=== PATIENT | male | born 1940 | race Caucasian/White ===

== ENCOUNTER 2017-03-04 16:22 | Inpatient (IN) | payer MEDICARE, BC ==
[~2017-03-04] VITALS: Ht 175.3 cm; Wt 88.0 kg
--- NOTE | 2017-03-04 16:30 | NUR ---
PATIENT BIB RA D/T MULTIPLE ABRASIONS AND LACERATION FROM ETOH ABUSE. PATIENT IS A/OX 3. BREATHING EVEN AND UNLABORED ON ROOM AIR. NO SOB. VITALS STABLE. SAFETY AND COMFORT MEASURES IN PLACE. AWAITING MD ORDERS.
[2017-03-04] MEDS ORDERED: ATEN25TA PO (16:43)
[2017-03-04] MEDS ORDERED: HYDR12.5 PO (16:43)
[2017-03-04] MEDS ORDERED: IV NS 0.9% 1,000 ML BAG IV ONE (17:00)
[2017-03-04 17:08] LABS: BASOPHILS # (AUTO) 0.1 /CMM (0.0-0.2); BASOPHILS % (AUTO) 1.5 % (0.0-2.0); EOSINOPHILS # (AUTO) 0.1 /CMM (0.0-0.7); EOSINOPHILS % (AUTO) 1.2 % (0.0-6.0); HEMATOCRIT 42 % (39-51); HEMOGLOBIN 14.6 g/dL (13.5-17.5); LYMPHOCYTES # (AUTO) 0.8 /CMM (0.8-4.8); LYMPHOCYTES % (AUTO) 9.4 % (20.0-44.0); MEAN CORPUSCULAR HEMOGLOBIN 36 PG (26.0-33.0); MEAN CORPUSCULAR HGB CONC 35 g/dl (31.0-36.0); MEAN CORPUSCULAR VOLUME 102 fL (80-96); MONOCYTES # (AUTO) 0.6 /CMM (0.1-1.30); MONOCYTES % (AUTO) 6.8 % (2.0-12.0); NEUTROPHILS # (AUTO) 6.9 /CMM (1.8-8.9); NEUTROPHILS % (AUTO) 81.1 % (43.0-81.0); PLATELET COUNT (AUTO) 192 /CMM (150-450); RDW COEFFICIENT OF VARIATION 12.6 (11.5-15.0); RED BLOOD CELL COUNT(AUTO) 4.08 MIL/uL (4.5-6.0); WHITE BLOOD COUNT (AUTO) 8.6 K/uL (4.3-11.0)
--- NOTE | 2017-03-04 17:08 | NUR ---
PATIENT TAKEN TO CT VIA STRETCHER.
--- NOTE | 2017-03-04 17:20 | NUR ---
PATIENT RETURNED FROM CT.
[2017-03-04 17:28] LABS: ALANINE AMINOTRANSFERASE 57 U/L (12-78); ALBUMIN 2.9 g/dL (3.4-5.0); ALCOHOL, BLOOD 119 mg/dL (0-0); ALKALINE PHOSPHATASE 74 U/L (46-116); ASPARTATE AMINOTRANSFERASE 68 U/L (15-37); BILIRUBIN,DIRECT 0.6 mg/dL (0.0-0.2); BILIRUBIN,TOTAL 1.2 mg/dL (0.2-1.0); CALCIUM, SERUM 8.4 mg/dL (8.5-10.1); CARBON DIOXIDE 33 mmol/L (21-32); CHLORIDE 85 mmol/L (98-107); CREATININE 0.9 mg/dL (0.6-1.3); GLUCOSE 105 mg/dL (74-106); SODIUM SERUM 126 mmol/L (136-145); TOTAL PROTEIN, SERUM 6.2 g/dL (6.4-8.2); UREA NITROGEN, BLOOD 6 mg/dL (7-18)
[2017-03-04 17:29] LABS: ACETAMINOPHEN 0 ug/ml (10-30)
[2017-03-04 17:30] LABS: POTASSIUM 2.2 mmol/L (3.5-5.1)
[2017-03-04] MEDS ORDERED: TAMS0.4C34 PO (17:31)
[2017-03-04] MEDS ORDERED: POTASSIUM CHLORIDE 20 MEQ TAB.PRT.SR PO ONE ×2 (17:53→18:00)
[2017-03-04] MEDS ORDERED: Magnesium 1GM/D5W 100ML PREMIX 100 ML IV ONE ×2 (17:53→19:22)
[2017-03-04] MEDS ORDERED: POTASSIUM CL. PREMIX PERIPHER. 50 ML ONE ×3 (18:07→20:19)
[2017-03-04] MEDS: Magnesium 1GM/D5W 100ML PREMIX 100 ML IV SCH ×2 (18:10→19:20)
[2017-03-04] MEDS: POTASSIUM CL. PREMIX PERIPHER. 50 ML IV SCH ×4 (18:11→22:48)
--- NOTE | 2017-03-04 18:29 | NUR ---
PAGED HOME COMFORT ADVISOR PANEL
[2017-03-04] MEDS ORDERED: IV NS 0.9% 1,000 ML IV ONE (19:00)
[2017-03-04] MEDS ORDERED: ACETAMINOPHEN 325 MG TABLET PO PRN (19:30)
[2017-03-04] MEDS ORDERED: MAGNESIUM HYDROXIDE 30 ML UDC PO PRN (19:30)
[2017-03-04] MEDS ORDERED: Z GUARD REMEDY 2 OZ OINT TP PRN (19:30)
[2017-03-04] MEDS ORDERED: MAG HYDROX/AL HYDROX/SIMETH 30 ML UDC PO PRN (19:30)
[2017-03-04] MEDS ORDERED: ONDANSETRON HCL/PF 4 MG/2 ML VIAL IVP PRN (19:30)
[2017-03-04] MEDS ORDERED: ZOLPIDEM TARTRATE 5 MG TABLET PO PRN (19:30)
--- NOTE | 2017-03-04 19:42 | NUR ---
URINE OBTAINED AND SENT TO LAB.
--- NOTE | 2017-03-04 19:47 | NUR ---
US TECH AT BEDSIDE.
--- NOTE | 2017-03-04 20:00 | NUR ---
PT REFUSING CAROTID DUPLEX. DR KLEIN NOTIFIED.
[2017-03-04] MEDS ORDERED: TDAP [DIPH/PERTUSSIS/TET] 0.5 ML VIAL IM ONE ×2 (20:29→20:30)
--- NOTE | 2017-03-04 20:44 | NUR ---
REPORT GIVEN TO [facility] FOR ADMISSION.
[2017-03-04 20:53] LABS: APPEARANCE,URINE Clear (CLEAR); BILIRUBIN,URINE Negative (NEGATIVE); BLOOD, URINE Moderate Ery/uL (NEGATIVE); COLOR,URINE Yellow (YELLOW); KETONES,URINE Negative (NEGATIVE); LEUKOCYTE ESTERASE ,URINE Negative (NEGATIVE); NITRITE, URINE Negative (NEGATIVE); PH,URINE 6.5 (5.0-8.0); PROTEIN,URINE Negative (NEGATIVE); UGLUCOSE Negative (NEGATIVE)
[2017-03-04 21:00] VITALS: BP 163/56
--- NOTE | 2017-03-04 21:00 | NUR ---
RN NOTES ADMITTED PATIENT FROM ER VIA STRETCHER WITH NO RESPIRATORY DISTRESS OR SHORTNESS OF BREATH. BREATHING EVEN AND UNLABORED. ALERT AND ORIENTED X 4. VERBALLY ABLE TO COMMUNICATE NEEDS. CONTINENT OF BOWEL AND BLADDER FUNCTION. ABDOMEN SOFT AND NON TENDER. LEFT WRIST IV LINE INTACT. ON IV HYDRATION @75ML TOLERATING WELL. VITAL SIGNS WNL. WILL CONTINUE TO MONITOR.
--- NOTE | 2017-03-04 21:05 | NUR ---
PATIENT TRANSPORTED TO [facility] FOR ADMISSION VIA ACLS PROTOCOL
[2017-03-04 21:10] LABS: BACTERIA,URINE None seen /HPF (None Seen); SQUAMOUS EPITHELIAL CELL,UR Few /HPF (None Seen); WBC,URINE 0-2 /HPF (0-3)
[2017-03-04] MEDS: IV NS 0.9% 1,000 ML IV PRN (23:24)
[2017-03-05] VITALS: BP 170/72
[2017-03-05 04:00] VITALS: BP 167/71
[2017-03-05] MEDS ORDERED: CLONIDINE HCL 0.1 MG TABLET PO PRN (04:30)
--- NOTE | 2017-03-05 07:15 | NUR ---
RN INITIAL NOTES PT IS IN BED A/O x4, NO COMPLAINTS OF PAIN, ROOM AIR SATURATING WELL. SINUS ON TELE. PT IS CONTINENT CONTACT ASSIST WITH 1 PERSON TO AMBULATE. ON REGULAR DIET - ASPIRATION PRECAUTION. PT HAS MULTIPLE BRUISES, AWAITING WOUND CONSULT. LEFT WRIST #20 GAUGE ON 75ML/HR. ENCOURAGED PT OF SELF CARE. ASSISTED WITH ADL'S. SIDE RAILS UP, BED LOCKED AND IN LOWEST POSITION, CALL LIGHTS WITHIN REACH.
--- NOTE | 2017-03-05 07:25 | NUR ---
RN CLOSING NOTES RESTING COMFORTABLY IN BED. IN NO DISTRESS, BREATHING EVEN AND UNLABORED. NO COMPLAINT OF PAIN OR DISCOMFORT. NO SIGNIFICANT CHANGE OF CONDITION. WILL ENDORSE TO AM SHIFT FOR CONTINUITY OF CARE
[2017-03-05 08:00] VITALS: BP_SYST 154; BP_DIAS 73; BP_DIAS 82
[2017-03-05 08:07] LABS: BASOPHILS # (AUTO) 0.1 /CMM (0.0-0.2); BASOPHILS % (AUTO) 0.8 % (0.0-2.0); EOSINOPHILS % (AUTO) 0.1 % (0.0-6.0); HEMATOCRIT 37 % (39-51); HEMOGLOBIN 13.3 g/dL (13.5-17.5); LYMPHOCYTES # (AUTO) 0.7 /CMM (0.8-4.8); LYMPHOCYTES % (AUTO) 8.7 % (20.0-44.0); MEAN CORPUSCULAR HEMOGLOBIN 36 PG (26.0-33.0); MEAN CORPUSCULAR HGB CONC 36 g/dl (31.0-36.0); MEAN CORPUSCULAR VOLUME 102 fL (80-96); MONOCYTES # (AUTO) 0.5 /CMM (0.1-1.30); MONOCYTES % (AUTO) 6.1 % (2.0-12.0); NEUTROPHILS # (AUTO) 6.7 /CMM (1.8-8.9); NEUTROPHILS % (AUTO) 84.3 % (43.0-81.0); PLATELET COUNT (AUTO) 164 /CMM (150-450); RDW COEFFICIENT OF VARIATION 12.5 (11.5-15.0); RED BLOOD CELL COUNT(AUTO) 3.64 MIL/uL (4.5-6.0); WHITE BLOOD COUNT (AUTO) 7.9 K/uL (4.3-11.0)
[2017-03-05] MEDS: PANTOPRAZOLE 40 MG TABLET.DR PO SCH (08:12)
[2017-03-05] MEDS: MULTIVITAMINS,THERAGRAN 1 UDTAB TABLET PO SCH (08:12)
[2017-03-05] MEDS: TAMSULOSIN 0.4 MG CAP.SR.24H PO SCH (08:13)
[2017-03-05] MEDS: FOLIC ACID 1 MG TABLET PO SCH (08:13)
[2017-03-05] MEDS: ATENOLOL 25 MG TABLET PO SCH (08:13)
[2017-03-05] MEDS: THIAMINE HCL 100 MG TABLET PO SCH (08:13)
[2017-03-05 08:43] LABS: CHOLESTEROL 96 mg/dL (<200); HDL CHOLESTEROL 42 mg/dL (40-60); LDL 54 mg/dL (0-99); TRIGLYCERIDES 38 mg/dL (30-150)
[2017-03-05 08:47] LABS: CALCIUM, SERUM 7.6 mg/dL (8.5-10.1); CARBON DIOXIDE 30 mmol/L (21-32); CHLORIDE 90 mmol/L (98-107); CREATININE 0.7 mg/dL (0.6-1.3); GLUCOSE 125 mg/dL (74-106); MAGNESIUM 1.7 mg/dL (1.8-2.4); PHOSPHORUS 2.1 mg/dL (2.5-4.9); SODIUM SERUM 127 mmol/L (136-145); UREA NITROGEN, BLOOD 5 mg/dL (7-18)
[2017-03-05] MEDS ORDERED: HYDROCHLOROTHIAZIDE 25 MG TABLET PO SCH (09:00)
[2017-03-05 09:40] LABS: POTASSIUM 2.8 mmol/L (3.5-5.1)
--- NOTE | 2017-03-05 11:15 | NUR ---
WOUND CARE CONSULT: PT PRESENTS WITH MULTIPLE WOUNDS, PRESENT ON ADMISSION INCLUDING SKIN TEARS TO ARMS AND ABRASIONS TO BILATERAL KNEES. RECOMMEND SURGICAL CONSULT. PLASTICS TEAM TO SEE PT PER DR FAUSTIN. PT ON JASBIR ISOFLEX LOW AIRLOSS BED. ALL SKIN PROTECTION MEASURES IN PLACE AND DISCUSSED WITH NURSING STAFF. WILL SEE PRN. DICKEY IN AGREEMENT WITH PLAN OF CARE. Addendum: 03/05/17 at 1117 by COLLETTE POWERS WNDNU Amended: Links added.
[2017-03-05] MEDS: POTASSIUM CHLORIDE 20 MEQ TAB.PRT.SR PO SCH ×3 (11:26→13:01)
[2017-03-05 12:00] VITALS: BP 112/70
[2017-03-05] MEDS ORDERED: Magnesium 1GM/D5W 100ML PREMIX PIGGYBACK IV ONE (12:00)
[2017-03-05] MEDS: Magnesium 1GM/D5W 100ML PREMIX 100 ML IV SCH ×2 (12:15→13:01)
[2017-03-05] MEDS ORDERED: K PHOS NEUTRAL 250 MG TABLET PO ONE (13:00)
[2017-03-05] MEDS: IV NS 0.9% 1,000 ML IV PRN (13:08)
[2017-03-05 16:00] VITALS: BP 124/54
[2017-03-05 17:03] LABS: URINE SODIUM, RANDOM 91 mmol/l (40-220)
[2017-03-05 17:21] LABS: OSMOLALITY,URINE 268 mOS/kg (340-1090)
[2017-03-05] MEDS: NEOMY SULF/BACITRAC ZN/POLY 15 GM TUBE TP SCH (17:25)
--- NOTE | 2017-03-05 18:56 | NUR ---
RN CLOSING NOTES NO SIGNIFICANT CHANGES DURING AM SHIFT. NO RESPIRATORY DISTRESS NOTED, ADLIB WITH BRP, STAND BY ASSIST. ENCOURAGE PT WITH SELF CARE, ASSISTED WITH ADL'S 1 PERSON ASSIST. WOUND TREATMENT DONE, URINE COLLECTED TO LAB FOR UA. ALL SAFETY MEASURES MAINTAINED, SIDE RAILS UP, BED LOCKED AND IN LOWEST POSITION. ALL MEDS GIVEN ORDERED. CALL LIGHTS WITHIN REACH, WILL ENDORSED TO PM NURSE FOR CONTINUATION OF CARE.
--- NOTE | 2017-03-05 19:15 | NUR ---
RN INITIAL NOTES RECEIVED PATIENT IN BED, AWAKE AND ALERT X2-3. PATIENT OBSERVED TO BE RESTLESS IN BED, CONSTANTLY TRYING TO GET UP AND SIT AT EDGE OF BED AND RETURNING TO BED. PATIENT'S NEEDS ANTICIPATED AND MET. CONSTANT REORIENTATION AND REDIRECTION PROVIDED. FALL AND SAFETY PRECAUTION STRICTLY OBSERVED. BED ALARM TURNED ON. B ARM DRESSINGS REMAINS INTACT, NO BLEEDING NOTED. IVF ORDERED ON PATIENT'S L WRIST G20, FLUSHED AND PATENT, NO SIGNS OF INFILTRATION. PATIENT'S NEEDS ANTICIPATED AND MET. SAFETY AND COMFORT ENSURED. BED IN LOW AND LOCKED POSITION. ON CLOSE MONITORING FOR FALL AND SAFETY AND PRECAUTION.
[2017-03-05 20:00] VITALS: BP 160/77
--- NOTE | 2017-03-05 22:00 | NUR ---
RN NOTES PATIENT IS ALERT, PERIODS OF CONFUSION NOTED. PATIENT REQUIRING CONSTANT REORIENTATION AND REDIRECTION. FALL AND SAFETY PRECAUTION OBSERVED AT ALL TIMES. PROVIDED WITH REASSURANCE NEEDED. PATIENT OBSERVED TO BE RESTLESS, IN AND OUT OF BED - SITTING AT EDGE OF BED. PATIENT ASSISTED WITH ADLs/VOIDING, MINIMAL TO STAND-BY ASSIST WITH USE OF FWW, UNSTEADY GAIT. FALL PRECAUTION OBSERVED AT ALL TIMES. STAFF AT BEDSIDE FOR CLOSE MONITORING.
[2017-03-05] MEDS: TEMAZEPAM 15 MG CAPSULE PO PRN (23:38)
[2017-03-06] VITALS: BP 127/85
--- NOTE | 2017-03-06 00:30 | NUR ---
RN NOTES PATIENT IN BED, STILL AWAKE AT THIS TIME, MORE CALM AT THIS TIME, NO EPISODE OF GETTING OOB. ON CLOSE MONITORING.
[2017-03-06] MEDS: HYDROCODONE/APAP 5/325MG 1 EACH TABLET PO PRN (01:47)
--- NOTE | 2017-03-06 01:50 | NUR ---
RN NOTES BED ALARM GOING OFF, ATTENDED TO PATIENT IMMEDIATELY, PATIENT NOTED TO BE ATTEMPTING TO GET OUT OF BED AND SITTING AT EDGE OF BED, RESTLESS AND AGITATED. PATIENT INSISTING ON WALKING TO THE BATHROOM; REORIENTED PATIENT TO SAFETY AND FALL RISK, PATIENT WITH UNSTEADY GAIT AND WAS MEDICATED WITH RESTORIL AT 2330. PATIENT UNABLE TO BE REDIRECTED. 2-3 NURSES ATTENDED TO PATIENT TO REORIENT AND REPOSITION PATIENT TO SAFETY. CLOSE VISUAL MONITORING, STAFF AT BEDSIDE TO ENSURE SAFETY AND PROVIDE REASSURANCE. WILL MEDICATE PATIENT WITH PRN MED FOR NOTED AGITATION, EPIC CALLED FOR FURTHER ORDERS.
--- NOTE | 2017-03-06 02:21 | NUR ---
RN NOTES SPOKE WITH DR. KLEIN AND INFORMED ABOUT THE PATIENT BEHAVIOR OF TRYING TO GET OOB AND AGITATION WITH ORDER OG ATIVAN 1 MG IVP ONETIME ,, BILATERAL SOFT WRIST RESTRAINT AND SITTER NOTED AND CARRIED OUT ORDERS.
[2017-03-06] MEDS ORDERED: LORAZEPAM INJ 2 MG/ML VIAL IV ONE (02:30)
[2017-03-06] MEDS ORDERED: LORAZEPAM INJ 2 MG/ML VIAL ONE (02:55)
--- NOTE | 2017-03-06 03:30 | NUR ---
RN NOTES CHECKED ON PATIENT. PATIENT STILL AWAKE, NOTED PATIENT WITH LEGS OFF THE BED. REORIENTED PATIENT AND REPOSITIONED PATIENT FOR SAFETY AND COMFORT. ASSISTED PATIENT WITH NEEDS, ANTICIPATED AND MET AT THIS TIME. B SOFT WRIST RESTRAINTS IN PLACE, CIRCULATION AND SKIN INTEGRITY ENSURED. ON CLOSE MONITORING.
[2017-03-06 04:00] VITALS: BP 142/89
--- NOTE | 2017-03-06 06:44 | NUR ---
RN NOTES PATIENT DID NOT SLEEP THE WHOLE NIGHT. PATIENT STILL NOTED WITH EPISODES OF GETTING OUT OF BED, RESTLESS IN BED, CONFUSED. CONSTANT REORIENTATION AND STAFF MONITORING IMPLEMENTED ALL NIGHT. REORIENTED AND REASSURED PATIENT NEEDED WITH MINIMAL HELP. B SOFT WRIST RESTRAINTS IN PLACE, CIRCULATION AND SKIN INTEGRITY MONITORED. WOUND CARE RENDERED ORDERED. PATIENT'S NEEDS ANTICIPATED AND MET. REFUSED IVF ORDERED, PATIENT ALSO ATTEMPTING TO REMOVE IV LINE WHEN CONNECTED, IVF PLACED ON HOLD FOR PATIENT'S SAFETY, ENCOURAGED PO INTAKE TOLERATED WITH GOOD PO INTAKE AND GOOD UO. ALL DUE MEDS GIVEN ORDERED. PATIENT'S NEEDS ANTICIPATED AND MET. BED ALARM IN PLACE. COORDINATED WITH NURSING QUALITY ASSURANCE SPECIALIST FOR 1:1 SITTER AVAILABILITY FOR THE PATIENT. WILL ENDORSE ACCORDINGLY FOR CONTINUITY OF CARE.
[2017-03-06 08:00] VITALS: BP 114/66
--- NOTE | 2017-03-06 08:04 | NUR ---
ICU/RN INITIAL NOTES,AM RECEIVED REPORT FROM NIGHT NURSE. PT ALERT, AWAKE, FOLLOWS COMMANDS YET CONFUSED, GETTING OUT OF BED. SITTER AT BEDSIDE. PT HIGH FALL RISK. PT TELE, SINUS. PIV PATENT AND INTACT, WILL CONTINUE TO MONITOR. PT CONTINENT, NEEDS ASSISTANCE TO BR. ALL NEEDS WILL BE MET, SAFETY MEASURE TAKEN, BED IN LOW POSITION, SIDE RAILS UP. CALL LIGHT WITHIN REACH.
[2017-03-06] MEDS: TAMSULOSIN 0.4 MG CAP.SR.24H PO SCH (08:18)
[2017-03-06] MEDS: THIAMINE HCL 100 MG TABLET PO SCH (08:19)
[2017-03-06] MEDS: FOLIC ACID 1 MG TABLET PO SCH (08:19)
[2017-03-06] MEDS: MULTIVITAMINS,THERAGRAN 1 UDTAB TABLET PO SCH (08:19)
[2017-03-06] MEDS: PANTOPRAZOLE 40 MG TABLET.DR PO SCH (08:19)
[2017-03-06] MEDS: ATENOLOL 25 MG TABLET PO SCH (08:26)
[2017-03-06] MEDS: NEOMY SULF/BACITRAC ZN/POLY 15 GM TUBE TP SCH (08:30)
[2017-03-06 09:22] LABS: BASOPHILS % (AUTO) 0.4 % (0.0-2.0); EOSINOPHILS % (AUTO) 0.3 % (0.0-6.0); HEMATOCRIT 43 % (39-51); HEMOGLOBIN 14.7 g/dL (13.5-17.5); LYMPHOCYTES # (AUTO) 0.6 /CMM (0.8-4.8); LYMPHOCYTES % (AUTO) 5.8 % (20.0-44.0); MEAN CORPUSCULAR HEMOGLOBIN 36 PG (26.0-33.0); MEAN CORPUSCULAR HGB CONC 34 g/dl (31.0-36.0); MEAN CORPUSCULAR VOLUME 104 fL (80-96); MONOCYTES # (AUTO) 0.4 /CMM (0.1-1.30); MONOCYTES % (AUTO) 3.5 % (2.0-12.0); NEUTROPHILS # (AUTO) 9.4 /CMM (1.8-8.9); PLATELET COUNT (AUTO) 187 /CMM (150-450); RDW COEFFICIENT OF VARIATION 12.6 (11.5-15.0); RED BLOOD CELL COUNT(AUTO) 4.15 MIL/uL (4.5-6.0); WHITE BLOOD COUNT (AUTO) 10.4 K/uL (4.3-11.0)
[2017-03-06 09:41] LABS: CALCIUM, SERUM 8.1 mg/dL (8.5-10.1); CARBON DIOXIDE 29 mmol/L (21-32); CHLORIDE 90 mmol/L (98-107); CREATININE 0.9 mg/dL (0.6-1.3); GLUCOSE 162 mg/dL (74-106); MAGNESIUM 1.6 mg/dL (1.8-2.4); POTASSIUM 2.9 mmol/L (3.5-5.1); SODIUM SERUM 127 mmol/L (136-145); UREA NITROGEN, BLOOD 4 mg/dL (7-18)
[2017-03-06 09:53] LABS: THYROID STIMULATING HORMONE 1.156 uIU/mL (0.358-3.74)
[2017-03-06 12:00] VITALS: BP 148/83
[2017-03-06] MEDS ORDERED: K PHOS NEUTRAL 250 MG TABLET PO ONE (14:00)
[2017-03-06] MEDS: Magnesium 1GM/D5W 100ML PREMIX 100 ML IV SCH ×2 (15:07→16:13)
[2017-03-06 16:00] VITALS: BP 148/70
[2017-03-06] MEDS: POTASSIUM CHLORIDE 10 MEQ TABLET.SA PO SCH ×2 (16:16→21:26)
[2017-03-06] MEDS: IV NS 0.9% 1,000 ML IV PRN (18:10)
--- NOTE | 2017-03-06 18:43 | NUR ---
TELE/RN ENDING NOTES,AM REPORT WILL BE ENDORSED TO NIGHT NURSE FOR CONTINUATION OF CARE. ALL NEEDS MET, SAFETY MEASURES TAKEN. SITTER AT BEDSIDE. PT CONFUSED, SITTING UP IN CHAIR AT THIS TIME. ON ROOM AIR, NO DISTRESS NOTED. WILL CONTINUE CARE.
--- NOTE | 2017-03-06 19:20 | NUR ---
RN INITIAL NOTE RECEIVED PT IN NO ACUTE DISTRESS IN BED. PT IS A/O X 2 AND ABLE TO MAKE NEEDS KNOWN. PT HAS PERIODS OF CONFUSION, BUT IS EASILY REDIRECTED/ REORIENTED. PT IS ON TELE WITH SR ON THE MONITOR. PT HAS SITTER AT BEDSIDE. PT IS NOT C/O ANY SOB, DIFFICULTY BREATHING OR PAIN AT THIS TIME. PT HAS L WRIST 20G THAT IS CLEAN DRY INTACT AND PATENT WITH NS @ 75ML/HR. BED IN LOW LOCK POSITION WITH RIALS UP X 2. CALL LIGHT WITHIN REACH AND ALL SAFETY MEASURES ENSURED AND CARRIED OUT. WILL CONTINUE TO MONITOR PT.
[2017-03-06 20:00] VITALS: BP 138/78
[2017-03-06] MEDS: TEMAZEPAM 15 MG CAPSULE PO PRN (21:24)
[2017-03-07] VITALS: BP 127/94
--- NOTE | 2017-03-07 | NUR ---
RN NOTE PT WENT TO SLEEP AND WAS ABLE TO START FLUIDS. PT WAS VERY COMBATIVE AND CONFUSED. GAVE PT RESTORIL PER PRN ORDER. PT IS SLEEPING IN BED.
[2017-03-07 04:00] VITALS: BP 146/90
[2017-03-07 06:47] LABS: BASOPHILS % (AUTO) 0.1 % (0.0-2.0); EOSINOPHILS # (AUTO) 0.1 /CMM (0.0-0.7); EOSINOPHILS % (AUTO) 0.9 % (0.0-6.0); HEMATOCRIT 39 % (39-51); HEMOGLOBIN 13.5 g/dL (13.5-17.5); LYMPHOCYTES # (AUTO) 0.9 /CMM (0.8-4.8); LYMPHOCYTES % (AUTO) 9.5 % (20.0-44.0); MEAN CORPUSCULAR HEMOGLOBIN 36 PG (26.0-33.0); MEAN CORPUSCULAR HGB CONC 35 g/dl (31.0-36.0); MEAN CORPUSCULAR VOLUME 104 fL (80-96); MONOCYTES # (AUTO) 0.6 /CMM (0.1-1.30); MONOCYTES % (AUTO) 6.2 % (2.0-12.0); NEUTROPHILS # (AUTO) 7.8 /CMM (1.8-8.9); NEUTROPHILS % (AUTO) 83.3 % (43.0-81.0); PLATELET COUNT (AUTO) 175 /CMM (150-450); RDW COEFFICIENT OF VARIATION 12.3 (11.5-15.0); RED BLOOD CELL COUNT(AUTO) 3.74 MIL/uL (4.5-6.0); WHITE BLOOD COUNT (AUTO) 9.4 K/uL (4.3-11.0)
--- NOTE | 2017-03-07 07:05 | NUR ---
RN CLOSING NOTE PT REMAINS IN NO ACUTE DISTRESS IN BED. PT DID NOT HAVE ANY SIGNIFICANT CHANGE IN CONDITION DURING SHIFT. PT DID BECOME DISORIENTED BUT WAS EASILY REORIENTED. ALL NEEDS MET ALL ORDERS CARRIED OUT. WILL ENDORSE TO AM RN FOR CONTINUITY OF CARE.
[2017-03-07 07:24] LABS: ALANINE AMINOTRANSFERASE 34 U/L (12-78); ALBUMIN 2.6 g/dL (3.4-5.0); ALKALINE PHOSPHATASE 71 U/L (46-116); ASPARTATE AMINOTRANSFERASE 39 U/L (15-37); BILIRUBIN,TOTAL 2.3 mg/dL (0.2-1.0); CALCIUM, SERUM 7.7 mg/dL (8.5-10.1); CARBON DIOXIDE 29 mmol/L (21-32); CHLORIDE 88 mmol/L (98-107); CREATININE 0.7 mg/dL (0.6-1.3); GLUCOSE 112 mg/dL (74-106); MAGNESIUM 2.4 mg/dL (1.8-2.4); PHOSPHORUS 2.6 mg/dL (2.5-4.9); TOTAL PROTEIN, SERUM 5.7 g/dL (6.4-8.2); UREA NITROGEN, BLOOD 7 mg/dL (7-18)
[2017-03-07 07:29] LABS: POTASSIUM 2.8 mmol/L (3.5-5.1); SODIUM SERUM 120 mmol/L (136-145)
--- NOTE | 2017-03-07 07:34 | NUR ---
SPOOL CLEANER NOTE RECEIVED PT IN NO ACUTE DISTRESS IN BED. PT IS A/O AND ABLE TO MAKE NEEDS KNOWN. PT HAS PERIODS OF CONFUSION, BUT IS EASILY REDIRECTED/ REORIENTED. PT IS ON TELE WITH SR ON THE MONITOR. PT HAS SITTER AT BEDSIDE. NO SOB, DIFFICULTY BREATHING OR PAIN AT THIS TIME. PT HAS L WRIST 20G THAT IS CLEAN DRY INTACT AND PATENT WITH NS @ 75ML/HR. BED IN LOW LOCK POSITION WITH RIALS UP X 2. CALL LIGHT WITHIN REACH AND ALL SAFETY MEASURES PROVIDED, WILL CONTINUE TO MONITOR PT CLOSELY
[2017-03-07 08:00] VITALS: BP 144/89
[2017-03-07] MEDS: MULTIVITAMINS,THERAGRAN 1 UDTAB TABLET PO SCH (08:23)
[2017-03-07] MEDS: TAMSULOSIN 0.4 MG CAP.SR.24H PO SCH (08:23)
[2017-03-07] MEDS: FOLIC ACID 1 MG TABLET PO SCH (08:23)
[2017-03-07] MEDS: PANTOPRAZOLE 40 MG TABLET.DR PO SCH (08:24)
[2017-03-07] MEDS: ATENOLOL 25 MG TABLET PO SCH (08:24)
[2017-03-07] MEDS: THIAMINE HCL 100 MG TABLET PO SCH (08:24)
[2017-03-07] MEDS: NEOMY SULF/BACITRAC ZN/POLY 15 GM TUBE TP SCH (08:25)
--- NOTE | 2017-03-07 09:27 | NUR ---
CONSULTANT INTERNSHIP NOTE SPOKE WITH DR GROVES NOTIFIED THAT CARLO 12 K 2.8 STATED THAT WILL CHECK IT OUT Addendum: 03/07/17 at 1056 by SASCHA WORRELL RN CARLO 120 CORRECTION
[2017-03-07] MEDS ORDERED: POTASSIUM CHLORIDE 20 MEQ TAB.PRT.SR PO ONE (09:30)
[2017-03-07] MEDS ORDERED: IV Sodium Chloride 3% 500 ML 500 ML IV ONE (09:30)
--- NOTE | 2017-03-07 10:56 | NUR ---
MS RN NOTE ARYAN YOUNG INSERTED MID LINE ON RT UPPER ARM LIZ 18 ORDERED CONT IBF ORDERED 3% NACL AT 30 ML PER HOUR
[2017-03-07 12:00] VITALS: BP 121/66
--- NOTE | 2017-03-07 14:58 | NUR ---
MS RN NOTE C\O COUGH PRODUCTIVE . SPOKE WITH DR FAUSTIN WITH ORDER ROBITUSSIN ORDER GIVEN , ORDER CARRIED OUT
[2017-03-07] MEDS ORDERED: GUAIFENESIN/D-METHORPHAN HB 5 ML UDC PO PRN (15:00)
--- NOTE | 2017-03-07 15:33 | NUR ---
PIG MACHINE OPERATOR HELPER NOTE SPOKE WITH DR FAUSTIN NOTIFIED THAT RT HAND WITH SWELLING ,KEEP ELEVATED AT ALL TIME ,WILL CONT TO MONITOR CLOSELY, ALSO PER DR FAUSTIN PATIENT REFUSED TO HAVE DVT PUMPS , NO ON ANTICOAGULATION MEDS ,STATED THAT PATIENT AT RISK FOR FALL ,NO NEED ANTICOAGULATION MED AT THIS TIME
[2017-03-07 15:48] LABS: URINE SODIUM, RANDOM 54 mmol/l (40-220)
[2017-03-07 15:53] LABS: CALCIUM, SERUM 7.6 mg/dL (8.5-10.1); CARBON DIOXIDE 30 mmol/L (21-32); CHLORIDE 88 mmol/L (98-107); CREATININE 0.7 mg/dL (0.6-1.3); GLUCOSE 101 mg/dL (74-106); POTASSIUM 3.4 mmol/L (3.5-5.1); SODIUM SERUM 122 mmol/L (136-145); UREA NITROGEN, BLOOD 8 mg/dL (7-18)
[2017-03-07 16:00] VITALS: BP 134/83
[2017-03-07 16:17] LABS: OSMOLALITY,URINE 303 mOS/kg (340-1090)
--- NOTE | 2017-03-07 17:30 | NUR ---
MS RN NOTE SPOKE WITH DR MITCHELL NOTICE THAT PATENT STILL C]O SEVERE COUGH NONSTOP ,ORDERED ROBITUSSIN WITH CODEINE Q6 HOUR 5 ML,ORDER CARRIED OUT Addendum: 03/07/17 at 1842 by SASCHA WORRELL RN ROBITUSSIN WITH CODEINE PO GIVEN ORDERED , FAMILY AT BEDSIDE, WILL CONT TO MONITOR CLOSELY
[2017-03-07] MEDS: GUAIFENESIN/CODEINE 10 ML UDC PO PRN (18:36)
[2017-03-07 20:00] VITALS: BP 136/71
[2017-03-08] MEDS: GUAIFENESIN/CODEINE 10 ML UDC PO PRN ×2 (01:34→08:57)
[2017-03-08 04:01] VITALS: BP 137/82
--- NOTE | 2017-03-08 06:53 | NUR ---
RN NOTE PT REMAINS IN NO ACUTE DISTRESS IN BED. PT DID NOT HAVE ANY SIGNIFICANT CHANGE IN CONDITION DURING SHIFT. ALL NEEDS MET ALL ORDERS CARRIED OUT. WILL ENDORSE CARE TO AM RN FOR CONTINUITY OF CARE.
[2017-03-08 07:13] LABS: BASOPHILS % (AUTO) 0.1 % (0.0-2.0); EOSINOPHILS # (AUTO) 0.1 /CMM (0.0-0.7); EOSINOPHILS % (AUTO) 1.2 % (0.0-6.0); HEMATOCRIT 38 % (39-51); HEMOGLOBIN 13.4 g/dL (13.5-17.5); LYMPHOCYTES # (AUTO) 0.9 /CMM (0.8-4.8); LYMPHOCYTES % (AUTO) 10.3 % (20.0-44.0); MEAN CORPUSCULAR HEMOGLOBIN 36 PG (26.0-33.0); MEAN CORPUSCULAR HGB CONC 35 g/dl (31.0-36.0); MEAN CORPUSCULAR VOLUME 103 fL (80-96); MONOCYTES # (AUTO) 0.7 /CMM (0.1-1.30); NEUTROPHILS # (AUTO) 6.7 /CMM (1.8-8.9); NEUTROPHILS % (AUTO) 80.4 % (43.0-81.0); PLATELET COUNT (AUTO) 196 /CMM (150-450); RDW COEFFICIENT OF VARIATION 12.4 (11.5-15.0); RED BLOOD CELL COUNT(AUTO) 3.73 MIL/uL (4.5-6.0); WHITE BLOOD COUNT (AUTO) 8.4 K/uL (4.3-11.0)
[2017-03-08 07:32] LABS: ALANINE AMINOTRANSFERASE 34 U/L (12-78); ALBUMIN 2.6 g/dL (3.4-5.0); ALKALINE PHOSPHATASE 67 U/L (46-116); ASPARTATE AMINOTRANSFERASE 37 U/L (15-37); BILIRUBIN,TOTAL 2.1 mg/dL (0.2-1.0); CALCIUM, SERUM 7.7 mg/dL (8.5-10.1); CARBON DIOXIDE 27 mmol/L (21-32); CHLORIDE 90 mmol/L (98-107); CREATININE 0.7 mg/dL (0.6-1.3); GLUCOSE 100 mg/dL (74-106); MAGNESIUM 1.6 mg/dL (1.8-2.4); PHOSPHORUS 2.8 mg/dL (2.5-4.9); POTASSIUM 3.5 mmol/L (3.5-5.1); SODIUM SERUM 124 mmol/L (136-145); TOTAL PROTEIN, SERUM 5.6 g/dL (6.4-8.2); UREA NITROGEN, BLOOD 9 mg/dL (7-18)
[2017-03-08 08:00] VITALS: BP 162/91
[2017-03-08] MEDS: THIAMINE HCL 100 MG TABLET PO SCH (08:51)
[2017-03-08] MEDS: PANTOPRAZOLE 40 MG TABLET.DR PO SCH (08:51)
[2017-03-08] MEDS: TAMSULOSIN 0.4 MG CAP.SR.24H PO SCH (08:51)
[2017-03-08] MEDS: FOLIC ACID 1 MG TABLET PO SCH (08:52)
[2017-03-08] MEDS: MULTIVITAMINS,THERAGRAN 1 UDTAB TABLET PO SCH (08:52)
[2017-03-08] MEDS: ATENOLOL 25 MG TABLET PO SCH (08:52)
[2017-03-08] MEDS: NEOMY SULF/BACITRAC ZN/POLY 15 GM TUBE TP SCH (08:53)
--- NOTE | 2017-03-08 10:21 | NUR ---
Social service consult requested by Dr. Dyer for alcohol /detox facility. Pt. is a 76 year old male who was admitted to [facility] for syncope. SW met with pt. bedside. Pt. is alert and oriented x 4. Pt. was cooperative during the assessment. Pt. was drinking alcohol at home and fell in his home due to intoxication. Pt. states he lives alone and has no family. Pt. resides at [address] [place] [address] in [facility] and [facility]. Pt. is his own decision maker. Pt. states he drinks alcohol daily and when SW inquired with pt. how much does he drink per day, pt. responded stating " too much." Pt. states, he drinks sunday and beer. Pt. states he feels confused at times. Pt. is open to going to a care home facility upon discharge. [facility] offered pt. alcohol treatment program resources and placement, however pt. declined. Pt. has not been in treatment and attended a 12 step meeting a long time ago. compensation and benefits manager Tom is aware of pt. wanting care home rehab placement. No other social service needs are required at this time. SW is available if needed.
[2017-03-08] MEDS: Magnesium 1GM/D5W 100ML PREMIX 100 ML IV SCH ×2 (11:11→12:16)
[2017-03-08 12:00] VITALS: BP 133/77
[2017-03-08 15:14] LABS: URINE SODIUM, RANDOM 26 mmol/l (40-220)
[2017-03-08 15:47] LABS: OSMOLALITY,URINE 288 mOS/kg (340-1090)
[2017-03-08 16:00] VITALS: BP 153/77
--- NOTE | 2017-03-08 19:30 | NUR ---
MS RN NOTE RECEIVED PATIENT AWAKE AND ALERT IN BED. VERY AGITATED. NO RESPIRATORY DISTRESS OR SOB NOTED. PATIENT TRYING TO GET OUT OF BED AND CALLED 911 SEVERAL TIMES. SPOKE CALMLY TO PATIENT, REASSURED HIM THAT HE IS VERY SAFE AND WE'RE HERE TO HELP HIM. PATIENT REQUESTED SLEEPING PILL. WILL ADMINISTER ORDERED.
[2017-03-08] MEDS: TEMAZEPAM 15 MG CAPSULE PO PRN (19:36)
[2017-03-08 20:00] VITALS: BP 150/94
--- NOTE | 2017-03-08 20:00 | NUR ---
MS RN NOTE PATIENT CALM AT THIS TIME. SITTER AT BEDSIDE. WILL CONTINUE TO MONITOR.
[2017-03-09] MEDS ORDERED: LORAZEPAM INJ 2 MG/ML VIAL ONE (00:29)
[2017-03-09] MEDS ORDERED: LORAZEPAM INJ 2 MG/ML VIAL IV PRN (00:30)
--- NOTE | 2017-03-09 00:40 | NUR ---
MS RN NOTE PATIENT VERY AGITATED. RECEIVED ORDER FROM FOR ATIVAN 1MG IVP ONE TIME. ORDERS RECEIVED AND CARRIED OUT. MEDICATION ADMINISTERED SAFELY.
--- NOTE | 2017-03-09 06:32 | NUR ---
MS RN NOTE PATIENT STABLE. RESTING AT THIS TIME. DRESSINGS CHANGED. TOLERATED WELL. WILL ENDORSE TO DAY SHIFT FOR BENEDICT.
--- NOTE | 2017-03-09 07:10 | NUR ---
MS RN INITIAL NOTES: REC'D PT AWAKE ON BED, NOT IN ANY FORM OF DISTRESS, A/O X2 W/ CONFUSION. ON ROOM AIR, SATURATING 95%. HAS RICCI MIDLINE, SL, FLUSHED, PATENT & INTACT, W/ NO S/SX OF INFECTION/ INFILTRATION NOTED. PROVIDED COMFORT & SAFETY MEASURES. CALL LIGHT PLACED W/IN EASY REACH. BED KEPT LOW & IN LOCKED POS. HAS 1:1 SITTER AT BEDSIDE. WILL CONTINUE TO MONITOR.
[2017-03-09 08:00] VITALS: BP 166/96
[2017-03-09] MEDS: THIAMINE HCL 100 MG TABLET PO SCH (08:57)
[2017-03-09] MEDS: PANTOPRAZOLE 40 MG TABLET.DR PO SCH (08:57)
[2017-03-09] MEDS: TAMSULOSIN 0.4 MG CAP.SR.24H PO SCH (08:58)
[2017-03-09] MEDS: MULTIVITAMINS,THERAGRAN 1 UDTAB TABLET PO SCH (08:58)
[2017-03-09] MEDS: FOLIC ACID 1 MG TABLET PO SCH (08:58)
[2017-03-09 08:59] VITALS: BP 166/96
[2017-03-09] MEDS: NEOMY SULF/BACITRAC ZN/POLY 15 GM TUBE TP SCH (08:59)
[2017-03-09] MEDS: ATENOLOL 25 MG TABLET PO SCH (08:59)
--- NOTE | 2017-03-09 09:03 | NUR ---
RN NOTES: PINK ALERTS (STK MED) ON EMAR CLEARED FOR PT'S SAFETY. MEDICATIONS NON ADMINISTERED.
--- NOTE | 2017-03-09 10:00 | NUR ---
RN NOTES: PT SEEN & EXAMINED BY DR. ZUNIGA W/ DC ORDERS TO SNF.
[2017-03-09] MEDS ORDERED: LORAZEPAM INJ 2 MG/ML VIAL IV ONE (12:40)
[2017-03-09] MEDS: HYDROCODONE/APAP 5/325MG 1 EACH TABLET PO PRN (12:45)
--- NOTE | 2017-03-09 12:51 | NUR ---
RN NOTES: PT STARTED TO BECOME AGITATED, SHOUTING AND KICKING AT STAFF. REFERRED TO DR. ZUNIGA W/ ORDERS TO GIVE ATIVAN 1 MG IVP X 1.
--- NOTE | 2017-03-09 14:50 | NUR ---
MS MUCKING MACHINE OPERATOR NOTES: PT DC'D TO [facility] [employer] ORDERED. DC DOCUMENTS AND INSTRUCTIONS GIVEN TO [employer] EMT. PT REFUSED TO SIGN DC DOCUMENTS AND BELONGING LIST. ALL BELONGINGS SENT W/ PT. PT STRONGLY REFUSED TO TAKE PHOTOS OF HIS WOUNDS AND TO DO WOUND CARE, ANUPAM BURK AND GIOVANY YOUNG ARE WITNESS. RISKS EXPLAINED BUT PT VERBALIZED THAT HE HAS RIGHTS TO REFUSED. RESPECTED PT'S RIGHT. REPORT GIVEN TO TASHA SOLANO (RN SUP ON BREAK). PER XIOMARA KEEP THE IV ACCESS ON RICCI MIDLINE. ID BAND REMOVED. NO CONCERNS IDENTIFIED AT THIS TIME. PT LEFT THE FACILITY IN STABLE CONDITION VIA KEVINRLACIE ACCOMPANIED BY 3 EMT. Addendum: 03/09/17 at 1651 by KEVIN XIONG RN ADDENDUM: PT IS ALERT & ORIENTED X 2, STILL W/ PERIODS OF CONFUSION, NOT IN ANY DISTRESS.
== END 2017-03-09 14:51 | DRG 897 ==
LOC: ER 16:23 → TELE1 20:55 → MEDSG1 03-07 10:31
PROVIDERS: ADMIT Internal Medicine; ATTEND Internal Medicine
PROC: 05H533Z Insertion of Infusion Device into Right Subclavian Vein, Percutaneous Approach (ICD-10-PCS; principal; 2017-03-07)
DX: F10.229 Alcohol dependence with intoxication, unspecified (principal); E44.0 Moderate protein-calorie malnutrition; E87.2 Acidosis; E88.09 Other disorders of plasma-protein metabolism, not elsewhere classified; E83.42 Hypomagnesemia; S22.43XA Multiple fractures of ribs, bilateral, initial encounter for closed fracture; E87.1 Hypo-osmolality and hyponatremia; D53.9 Nutritional anemia, unspecified; I10 Essential (primary) hypertension; S41.101A Unspecified open wound of right upper arm, initial encounter; T14.8 Other injury of unspecified body region; W18.30XA Fall on same level, unspecified, initial encounter; E86.0 Dehydration; Y93.9 Activity, unspecified; Y92.007 Garden or yard of unspecified non-institutional (private) residence as the place of occurrence of the external cause; Y99.9 Unspecified external cause status; D63.8 Anemia in other chronic diseases classified elsewhere; E66.9 Obesity, unspecified; Z68.28 Body mass index [BMI] 28.0-28.9, adult; Z91.81 History of falling; R29.6 Repeated falls; R74.0 Nonspecific elevation of levels of transaminase and lactic acid dehydrogenase [LDH]; R55 Syncope and collapse; S80.212A Abrasion, left knee, initial encounter; S80.211A Abrasion, right knee, initial encounter; S41.102A Unspecified open wound of left upper arm, initial encounter; Y90.5 Blood alcohol level of 100-119 mg/100 ml; R26.9 Unspecified abnormalities of gait and mobility; E87.6 Hypokalemia; E83.51 Hypocalcemia; R73.9 Hyperglycemia, unspecified; E66.01 Morbid (severe) obesity due to excess calories; E78.5 Hyperlipidemia, unspecified; E83.39 Other disorders of phosphorus metabolism; F17.210 Nicotine dependence, cigarettes, uncomplicated; I87.2 Venous insufficiency (chronic) (peripheral); L60.3 Nail dystrophy; S00.12XA Contusion of left eyelid and periocular area, initial encounter; N40.0 Benign prostatic hyperplasia without lower urinary tract symptoms; T50.2X5A Adverse effect of carbonic-anhydrase inhibitors, benzothiadiazides and other diuretics, initial encounter
CPT/HCPCS: 36415; 70450-TC; 71010-TC; 80048-TC; 80053-TC; 80061-TC; 80076-TC; 80305; 81000-TC; 82746; 83735-TC; 83935-TC; 84100-TC; 84300-TC; 84443-TC; 84550-TC; 85025-TC; 87081-TC; 90715; 93307-TC; 97116-TC; 97530-TC; A4606; A6253; A6403; G0480; J2060; J3475; J3480; J3490; J7030; J7050; Z7610